=== PATIENT | female | born 1960 ===

== ENCOUNTER → 2017-07-15 | Outpatient (CLI) | payer OTHER ==
[~2017-07-15] MED LIST: ACET-1966 PO; ACET-2708 PO; CALC-854 PO; CHOL500050 PO; CLON-298 PO; CLON-389 PO; LETR2.5T4 PO; LOR1 PO; NAPR220C12 PO; VENL37.594 PO; VITA150T2 PO
--- NOTE | 2017-07-16 10:21 | RADIOLOGY IMAGING REPORT ---
FAC[place] [facility] [place]IENT NAME: HAY BRAGG : [id number] MR: [id number] V: [id number] EXAM DATE: [id number] ORDERING PHYSICIAN: GOVIND DORANTES TECHNOLOGIST: Ernestine Lmi PROCEDURE:BILATERAL DIAGNOSTIC DIGITAL MAMMOGRAM WITH CAD ASSISTED INTERPRETATION & 3D TOMOSYNTHESIS COMPARISON:Prior mammograms 07/14/16, 05/08/15, 11/16/14, 11/09/11 INDICATIONS:HX BREAST CA FINDINGS: Heterogeneous fibroglandular tissue is seen throughout the breasts. The area of postsurgical scaring and architectural distortion in the deep central Left breast with adjacent surgical clips appear similar to the prior study. Skin thickening over the Left breast is again seen consistent with the history of prior radiation therapy. There is no evidence of malignant appearing mass, malignant appearing calcifications or other secondary sign of malignancy in either breast. Today's Left breast Ultrasound demonstrated what appears to be scar tissue in the postoperative site. DIAGNOSTIC CATEGORY 3--PROBABLY BENIGN FINDING. RECOMMENDATIONS: SIX MONTH FOLLOW-UP ULTRASOUND: LEFT BREAST. IMPRESSION: BIRADS 3: Probably benign finding A 6 month follow-up Left breast Ultrasound is recommended as described in Today's Left breast Ultrasound report. Dictated by: Sherry Kaplan M.D. on 07/15/2017 at 16:19 Transcribed by: SAPNA on 07/16/2017 at 8:27 Approved by: Sherry Kaplan M.D. on 07/16/2017 at 10:20 [facility]
--- NOTE | 2017-07-16 10:22 | RADIOLOGY IMAGING REPORT ---
FACILITY: [facility] PATIENT NAME: HAY BRAGG : [id number] MR: [id number] V: [id number] EXAM DATE: [id number] ORDERING PHYSICIAN: GOVIND DORANTES TECHNOLOGIST: Faustina Kelly PROCEDURE:US LEFT BREAST COMPLETE COMPARISON:Prior Left breast Ultrasound 04/07/17, 07/14/16 INDICATIONS:HX BREAST CA FINDINGS: In the 10 o'clock position of the Left breast there is a 7 x 5 x 8mm ovoid well circumscribed hypoechoic region likely representing a focal island of fibroglandular tissue. In the 11-12 o'clock position of the Left breast again is demonstrated what appears to be a postsurgical scaring in the operative site tracking toward the skin. Skin thickening also noted consistent with the history of previous radiation therapy. The previously noted 4.7 x 4.3 x 5.3mm ovoid hypoechoic nodule in the 9 o'clock position Left breast 2cm from the nipple was not demonstrated on the current examination. DIAGNOSTIC CATEGORY 3--PROBABLY BENIGN FINDING. RECOMMENDATIONS: SIX MONTH FOLLOW-UP ULTRASOUND: LEFT BREAST. IMPRESSION: BIRADS 3: Probably benign finding There appears to be postoperative scaring in the 11-12 o'clock position of the Left breast. A 6 month follow-up Left mammogram is recommended to document stability unless clinical findings warrant more immediate attention. Dictated by: Sherry Kaplan M.D. on 07/15/2017 at 16:22 Transcribed by: SAPNA on 07/16/2017 at 8:38 Approved by: Sherry Kaplan M.D. on 07/16/2017 at 10:21 [facility]
== END ==
LOC: RAD 09:09
PROVIDERS: ATTEND Internal Medicine
DX: N63.22 Unspecified lump in the left breast, upper inner quadrant (principal)
CPT/HCPCS: 77062; 77066

== ENCOUNTER 2017-10-20 08:10 | Outpatient (RCR) | payer OTHER ==
[2017-10-13 13:45] VITALS: BP 115/59
[2017-10-13 14:16] LABS: PLATELET COUNT, AUTOMATED 366 K/uL (150-450)
[2017-10-20 08:33] VITALS: BP 120/78
--- NOTE | 2017-10-20 22:03 | ONCOLOGY FOLLOW UP NOTE ---
EVENT DATE: October 20, 2017 CHIEF COMPLAINT AND REASON FOR VISIT Ms. Doshi is a very pleasant, 57-year-old female with a history of two breast cancers, here for followup. HISTORY OF PRESENT ILLNESS AND INTERVAL HISTORY Pema returns. She has a [id number] survival from her second breast cancer with the first being back in 1991. Please see the full oncology history below. Her recent ultrasound of the breasts showed a left benign lesion on ultrasound that was new. The prior benign lesion had resolved. It is possible that this could be the same lesion, but does not appear to be close to the same location. It appears benign, and we will follow up again in six months. Discussed this in detail with her today. There were no microcalcifications of concern. She finished her hormonal therapy with letrozole in July 2016. She continues to have aches and pains, and we discussed this in detail today. She has left-sided back pain that often radiates down the leg that began after a fall on a hammock in a store about a year ago. She had some initial improvement , but it continues to be a problem, and it is starting to get worse again. I am concerned about benign causes to this back pain and would like to begin with physical therapy before imaging. Her levels of her labs are stable, and I do not believe we need to get imaging yet. ONCOLOGIC HISTORY The patient initially presented with abnormal mammogram in August of 2010. This lead to diagnosis of left breast cancer. 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 The patient underwent left breast partial mastectomy on October 13, 2010 and sentinel node invasive ductal carcinoma. There was contiguous focal invasion 1.19 cm and 1.7 cm with high-grade ductal carcinoma in situ (DCIS) components. Three sentinel lymph nodes were negative for metastasis. The patient had a margin resected again, since there was a positive margin on October 24, 2010. The patient received TCH times six cycles in April of 2011. Herceptin was continued times three weeks for the rest of the year, so she received adjuvant Herceptin for one year per protocol. The patient had radiation therapy on July 08, 2011, 3.67 cm node, negative left breast cancer. ER/NJ negative, HER2/anthony positive. The patient was started on letrozole in July of 2011. There was some question of recurrence, abnormal soft tissue and MRI of the bilateral breast on August 19, 2011. However, later CT scan reviewed it was scar tissue. Bone density on September 30, 2011 was unremarkable. The patient is due in August of 2013. The patient had a right upper extremity venous ultrasound which is negative for clot. The patient had a routine bilateral mammogram on November 09, 2011 and left mammogram done in May of 2012 in follow up. Bilateral mammogram in 2012. The patient is suppose to have left breast mammogram every six months and every 12 months bilateral. The patient is here for routine follow up. The patient had Infusaport removed in March of 2012. PAST MEDICAL HISTORY 1. Right breast cancer in 1991. 2. Left breast cancer in 2010. The patient is BRCA negative. PAST SURGICAL HISTORY Total hysterectomy on April 08, 2009. SOCIAL HISTORY The patient is . She presented with her . She does drink a few drinks of alcohol per week, nonsmoker. FAMILY HISTORY Her great-aunt had a form of cancer at an early age, otherwise unremarkable. MEDICATIONS 1. Lorazepam as needed. 2. Vitamin D supplement weekly. 3. Vitamin B complex. 4. Calcium. 5. Anti-inflammatories as needed. ALLERGIES CODEINE, LATEX and ADHESIVES. REVIEW OF SYSTEMS CONSTITUTIONAL: No fevers, chills, weight change. Positive fatigue, most likely related to work. HEENT: No headache, vision changes. CARDIOVASCULAR: No chest pain, dyspnea on exertion or edema. RESPIRATORY: No shortness of breath, wheeze, cough. GASTROINTESTINAL: No nausea, vomiting, diarrhea or constipation. GENITOURINARY: No dysuria or hematuria. MUSCULOSKELETAL: No weakness. Positive chronic arthralgias, unchanged. PSYCHIATRIC: No anxiety or depression. High stress. SKIN: No concerning rashes or bruising. LYMPHATIC: No concerning lumps or bumps. The remainder of the 14-point review of systems is otherwise negative. PHYSICAL EXAMINATION VITAL SIGNS: Blood pressure 120/78, pulse 63, respiratory rate 16, temperature 97.1 Fahrenheit, oxygen saturation 96% on room air. Weight 66.6 kg. Pain 6/ 10. Fatigue 6/10 due to work and stress. GENERAL: Stable condition, resting comfortably in a chair. HEENT: Normocephalic, atraumatic. CARDIOVASCULAR: Regular rate and rhythm. LUNGS: Clear to auscultation bilaterally. No dullness at the bases. ABDOMEN: Soft, nontender. No organomegaly or masses. EXTREMITIES: No clubbing, cyanosis, or edema of significance. She does have trace edema in the feet. Remainder of physical exam otherwise unremarkable. IMPRESSION AND PLAN Mrs. Doshi is a very pleasant 57-year-old female with the followin. Right-sided breast cancer, ER and NJ positive, HER2/anthony normal, treated with radiation therapy and surgery in 1991. 2. Left-sided breast cancer, ER and NJ positive, HER2/anthony overexpressed. She received chemotherapy for this in 2010 and finished letrozole in 2017. She is doing quite well with improvement of the arthralgias related to the letrozole. She does still have chronic issues and back pain. 3. Fatigue related to stress. 4. Back pain, chronic, likely related to a fall over a year ago. She did not seek medical attention for this, but it continues to be a problem. After discussion, would like to start with physical therapy, and I have ordered this. If this is not successful, then I would like to get an MRI. 5. Edema, trace. She has had echocardiograms which have been unremarkable. Will refer her back to her primary care provider, Ms. Quinones, to consider a repeat cardiac workup and management of this. I do not yet feel she needs Lasix , but may in the future. I answered all her questions. See us back in six months with repeat imaging. BILLING Visit level 4. Total time 30 minutes, counseling time 20. MTDD
== END 2017-10-21 10:45 | disposition home or self-care (01) ==
LOC: ONC 08:10
PROVIDERS: ATTEND Internal Medicine
DX: Z85.3 Personal history of malignant neoplasm of breast (principal); Z92.3 Personal history of irradiation; Z92.21 Personal history of antineoplastic chemotherapy; R53.83 Other fatigue; M54.9 Dorsalgia, unspecified
CPT/HCPCS: 36415; 82040; 82247; 82310; 82374; 82435; 82565; 82947; 84075; 84132; 84155; 84295; 84450; 84460; 84520; 85025; 86300; 99212

== ENCOUNTER 2017-12-22 16:00 | Outpatient (RCR) | payer OTHER ==
--- NOTE | 2017-10-21 19:55 | PT INITIAL EVALUATION ---
MEDICAL DIAGNOSIS: low back pain TREATMENT DIAGNOSIS: same and cervical neck pain DATE OF ONSET: 10/21/16 SUBJECTIVE: Pema Doshi presents to physical therapy with complaints of low back pain that started approximately one year ago following a incident with a hammock in which she hit her back against the concrete ground. She states that the pain has gotten worse over the last 6 months. She reports that she has an essential tremor that forces her neck and the muscles surrounding her neck to be sore and painful. She reports that she has had breast cancer two different times approximately 25 years apart. She reports that she has been in remission since 2010 and has finished taking her anti-cancer medication approximately one year ago. She reports that she has lymphedema in her R UE and B LE's and has compression sleeve for her R UE. She reports that she has pain with lifting 30# or more, bending, sitting, standing, walking, and lying. She denies any pain with coughing, sneezing, or straining. She reports normal bladder control since the back pain started. She denies any imaging or recent surgery. She reports that she has night pain but denies any unexplained weight loss. Pain location is L posterior hip radiating down to posterior L thigh, C0- T8 spinous, BUT and described as achy, sharp. Pain scale is 7 on a ten point pain scale. 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 ROM: Trunk AROM: flexion: Nil with tightness end feel. extension: moderate restriction with painful end feel. side gliding R: minimal restriction with painful end feel. side gliding L: moderate restriction with painful end feel. Palpation: TTP: C0-T78 spinous process and facet joints, B UT, and L posterior hip (PSIS) radiating down to posterior L thigh Sensation: Intact: L2-S1 Special Tests: Repeated extension: pain during the test and worse following the test (potentially centralized) but she had decreased trunk AROM following and it was more painful as well (worse). Repeated flexion: stretch during the test and better following the test with improvements in trunk AROM in all directions. Will test cervical in a future visit. Mobility: Independent Gait: She demonstrated normal gait mechanics ASSESSMENT: Pema will benefit from skilled physical therapy to address the listed impairments to improve function and return to prior level of function. Short Term Goals 3 weeks: Pt will demonstrate centralized low back pain to improve function and QOL. 6 weeks: Pt will demonstrate abolished low back pain to improve function and QOL. 8 weeks: Pt will demonstrate return to prior level of function and abolished low back pain to improve function and QOL. Patient's Goals get rid of low back pain and neck pain PLAN: Patient to be seen for Manual Therapy/STM/MET Strengthening/condition Range of Motion Spinal Stabilization Work Hardening/Cond Stretching Neuromuscular Re-ed Closed Chain Program Posture/Body mechanics Home Exercise Program Therapeutic Activities 2x/Week for 2 Months If you have any questions, comments, or concerns about this report or plan, please contact me at . Thank you, Roberto Garrison, PT, DPT MTDD
[~2017-12-22 16:00] MED LIST changes: -CLON-298 PO; +CLON-331 PO
== END 2018-01-19 ==
LOC: PT 16:00
PROVIDERS: ATTEND Internal Medicine
DX: M54.5 Low back pain (principal); M54.2 Cervicalgia; G25.0 Essential tremor; M25.552 Pain in left hip
CPT/HCPCS: 97162

== ENCOUNTER → 2018-01-24 | Outpatient (CLI) | payer OTHER ==
--- NOTE | 2018-01-25 09:04 | RADIOLOGY IMAGING REPORT ---
FACILITY: [facility] - [place] PATIENT NAME: HAY BRAGG : [id number] MR: [id number] V: [id number] EXAM DATE: [id number] ORDERING PHYSICIAN: GOVIND DORANTES TECHNOLOGIST: Vaishnavi Hua RT(R)(CT) PROCEDURE:US LEFT BREAST COMPARISON:Prior mammogram 07/15/17 Prior Left breast Ultrasound 07/15/17, 04/07/17, 07/14/16, 05/08/15. INDICATIONS:6 MO F/U FINDINGS: From the 9-12 o'clock position of the Left breast again noted is an area of scar tissue with acoustic shadowing that appears similar to the prior Ultrasounds. DIAGNOSTIC CATEGORY 3--PROBABLY BENIGN FINDING. RECOMMENDATIONS: SIX MONTH FOLLOW-UP DIAGNOSTIC MAMMOGRAM: BILATERAL BREASTS. IMPRESSION: BIRADS 3: Probably benign finding. Scar tissue in the 9-12 o'clock position of the Left breast is again seen. A 6 month follow-up bilateral mammogram is recommended at which time the patient will be due for her annual mammogram. Dictated by: Sherry Kaplan M.D. on 01/24/2018 at 16:46 Transcribed by: SAPNA on 01/25/2018 at 8:41 Approved by: Sherry Kaplan M.D. on 01/25/2018 at 9:03 [facility]
== END ==
LOC: MAMO 13:41
PROVIDERS: ATTEND Internal Medicine
DX: C50.912 Malignant neoplasm of unspecified site of left female breast (principal); Z17.0 Estrogen receptor positive status [ER+]

== ENCOUNTER → 2018-06-13 | Outpatient (CLI) | payer OTHER ==
[~2018-06-13] MED LIST changes: +GADOBENATE 529MG/1ML 15ML VIAL IVP ONE; +PROP60TA15 PO
[2018-06-13 13:17] LABS: PLATELET COUNT, AUTOMATED 419 K/uL (150-450)
--- NOTE | 2018-06-13 15:23 | RADIOLOGY IMAGING REPORT ---
FACILITY: [facility] - [place] PATIENT NAME: Pema Doshi : 1960 MR: [id number] V: [id number] EXAM DATE: ORDERING PHYSICIAN: REJI GILLIS TECHNOLOGIST: Location: [facility] - [place] Patient: Pema Doshi : 1960 Visit/Account:[id number] Date of Sevice: 06/13/2018 EXAMINATION: MRI Brain without intravenous contrast MRI Brain with intravenous contrast HISTORY: Tremor. Breast cancer. COMPARISON: None available. TECHNIQUE: Multi-planar, multi-sequence brain MRI was performed before and after IV gadolinium. CONTRAST: 14 mL of IV MultiHance FINDINGS: Brain volume: Normal. Sagittal midline structures: Negative. Ventricles: Negative. Acute ischemic changes: None. Hemorrhage: None. Masses / edema: None. Enhancement: Negative. Paz-white: Negative. White matter: A few T2/FLAIR hyperintensities in the deep white matter bilaterally. Vessels: Negative. Extra-axial: Negative. Calvarium / scalp: Negative. Skull base: Negative. Visualized sinuses / orbits: Negative. Visualized upper neck: Negative. IMPRESSION: 1. No acute intracranial abnormality or mass. 2. Mild chronic white matter disease, nonspecific but most likely representing chronic microvascular ischemia. Report Dictated By: Ghanshyam Jean MD at 06/13/2018 3:13 PM Report E-Signed By: Ghanshyam Jean MD at 06/13/2018 3:18 PM WSN:[id number]
== END ==
LOC: MRI 02:16
PROVIDERS: ATTEND Psychiatry & Neurology Neurology
DX: R25.1 Tremor, unspecified (principal); G25.0 Essential tremor; F33.41 Major depressive disorder, recurrent, in partial remission; M54.2 Cervicalgia; M62.838 Other muscle spasm
CPT/HCPCS: 36415; 70553; 82164; 82306; 82607; 82746; 84439; 84443; 85025; 86038; A9577; 82040; 82247; 82310; 82374; 82435; 82565; 82947; 84075; 84132; 84155; 84295; 84450; 84460; 84520

== ENCOUNTER 2018-10-10 12:47 | Outpatient (RCR) | payer OTHER ==
[2018-10-03 12:58] VITALS: BP 111/85
[2018-10-03 13:04] LABS: PLATELET COUNT, AUTOMATED 389 K/uL (150-450)
[~2018-10-10 12:47] MED LIST changes: -GADOBENATE 529MG/1ML 15ML VIAL IVP ONE
[2018-10-10 13:05] VITALS: BP 106/74
[2018-10-10] MEDS ORDERED: SERT-184 PO (13:07)
--- NOTE | 2018-10-14 02:55 | ONCOLOGY FOLLOW UP NOTE ---
EVENT DATE: October 10, 2018 CHIEF COMPLAINT Followup for breast cancer. HISTORY OF PRESENT ILLNESS Patient is a 58-year-old female who is seen today in six-month followup. Overall, from a breast cancer point of view, she feels she is doing fairly well. However, she has fairly significant essential tremor. She is looking into deep brain stimulation. Her other issue is that of ongoing neck and right shoulder pain due to cervical dystonia. She is working with a neurologist in [place] and will be scheduled for Botox injections in the near future. Both of these issues have been fairly overwhelming, and she is hopeful for some improvement. She does have some ongoing arthralgias, but feels much of this is related to her cervical dystonia. ONCOLOGY HISTORY Diagnosed with a right breast cancer in 1991, status post lumpectomy. She then presented with an abnormal mammogram in August 2010, and was diagnosed with a left breast cancer. She underwent stereotactic core biopsy in August 2012, which showed high-grade invasive ductal carcinoma, ER weakly positive, [place] positive, HER2/anthony positive. Underwent left lumpectomy on 10/13/10 with sentinel lymph node positive for the invasive ductal carcinoma. Completed six cycles of TCH in April 2011, followed by Herceptin every three weeks for the remainder of the year. Completed radiation therapy in July 2011. Began letrozole in July 2011 and completed a five-year course in July 2016. MEDICAL HISTORY 1. Right breast cancer, 1991. 2. Left breast cancer, 2010. 3. Cervical dystonia. 4. Essential tremor. SURGICAL HISTORY 1. Total hysterectomy, April 2009. 2. Right lumpectomy, 1991. 3. Left lumpectomy, 2010. FAMILY HISTORY Great aunt had a form of cancer at an early age, but otherwise negative. SOCIAL HISTORY Patient is . She is not working. She is a nonsmoker. She drinks alcohol several times a week. MEDICATIONS 1. Lorazepam p.r.n. 2. Sertraline. 3. Vitamin D. 4. Vitamin B. 5. Calcium. 6. Anti-inflammatories p.r.n. ALLERGIES 1. CODEINE. 2. LATEX. 3. ADHESIVES. REVIEW OF SYSTEMS A 12-point review of systems is performed and is negative except as stated above. PHYSICAL EXAMINATION VITAL SIGNS: Weight 140 pounds, BP 106/74, P 63, R 16, temp 97.3, O2 sat 96%. GENERAL: Patient is a well-developed, well-nourished female in no acute distress. HEAD: Normocephalic, atraumatic. EYES: Sclerae anicteric. MOUTH: Moist mucous membranes. NECK: Neck is very stiff due to cervical dystonia. No palpable adenopathy. BREASTS: Status post right lumpectomy with well-healed incision. Left breast has a well-healed incision with mild thickened areas. LUNGS: Clear bilaterally. CARDIOVASCULAR: Heart rate regular at 63 per minute. ABDOMEN: Soft, nontender, with active bowel sounds. No organomegaly. EXTREMITIES: No edema. NEURO: Essential tremor, but otherwise negative. LABORATORY CBC on 10/03/18 showed a WBC of 6.9, hemoglobin 13.2, hematocrit 39.1, platelets 389,000. CMP was within normal limits. CA15-3 is 37 (decreased from 43). IMPRESSION The patient is a 58-year-old female with a history of right breast cancer, ER/TX positive, HER2/anthony negative, status post surgery and radiation in 1991. She developed a left breast cancer, ER/TX positive and HER2/anthony overexpressed. Underwent left lumpectomy. Completed chemotherapy with TCH in 2010 as well as Herceptin for a total of one year. Completed a five-year course of letrozole in 2017. PLAN 1. Breast cancer. No signs or symptoms of disease recurrence. She does have some mild arthralgias remaining, which she attributes to both the previous aromatase inhibitor as well as her cervical dystonia. 2. Breast surveillance. Underwent bilateral mammogram on 07/15/17, which was BIRADS category 3. Left breast ultrasound on 01/24/18, also BIRADS category 3. Recommendation is to repeat both bilateral diagnostic mammogram as well as left breast ultrasound in six months, due now. These are ordered today. 3. Essential tremor. Patient has met with a neurologist and is discussing deep brain stimulation. 4. Cervical dystonia. This has caused her much discomfort in her neck and shoulder. She has met with a neurologist, who is planning Botox treatments. 5. Followup in six months for continued care, earlier if there is a problem. MTDD
== END 2018-10-31 14:50 | disposition home or self-care (01) ==
LOC: ONC 12:47
PROVIDERS: ATTEND Internal Medicine
DX: Z85.3 Personal history of malignant neoplasm of breast (principal); Z92.21 Personal history of antineoplastic chemotherapy; G24.3 Spasmodic torticollis
CPT/HCPCS: 36415; 82040; 82247; 82310; 82374; 82435; 82565; 82947; 84075; 84132; 84155; 84295; 84450; 84460; 84520; 85025; 86300; 99212

== ENCOUNTER → 2018-11-02 | Outpatient (CLI) | payer OTHER ==
[~2018-11-02] MED LIST changes: +SERT-184 PO
--- NOTE | 2018-11-04 15:44 | RADIOLOGY IMAGING REPORT ---
FACILITY: [facility] PATIENT NAME: HAY BRAGG : [id number] MR: [id number] V: [id number] EXAM DATE: ORDERING PHYSICIAN: DC ARREAGA TECHNOLOGIST: Heidi Leo PROCEDURE:BILATERAL DIAGNOSTIC DIGITAL MAMMOGRAM WITH CAD ASSISTED INTERPRETATION & 3D TOMOSYNTHESIS REASON FOR STUDY: History of Left breast ca FAMILY HISTORY OF BREAST CANCER: Self BREAST PROCEDURES/TREATMENTS: Malignant lumpectomy of the Right breast 1991 followed by radiation therapy & a malignant lumpectomy of the Left breast followed by radiation therapy & chemotherapy. COMPARISON STUDIES: 07/15/17, 07/14/16, 05/08/15, 11/09/11 MAMMOGRAM VIEWS OBTAINED: Bilateral 2D & 3D full field CC & MLO projections BREAST DENSITY: The breasts are heterogeneously dense which can obscure small masses. MAMMOGRAM FINDINGS: Again noted is an area of architectural distortion in the approximate 12 o'clock position of the Left breast from previous lumpectomy with adjacent surgical clips. Skin thickening also noted in the Left breast consistent with prior radiation therapy. The parenchymal pattern has remained stable allowing for difference in mammographic technique & patient positioning. ULTRASOUND LEFT BREAST LIMITED AREA SCANNED: The 9-12 o'clock position of the Left breast in the location of patient's scar. COMPARISON: Left breast Ultrasound of 01/24/18, 07/15/17, 04/07/17, 05/08/15 ULTRASOUND FINDINGS: When compared to the Left breast Ultrasound of 05/08/15 again noted is the area of scar tissue with acoustic shadowing that actually appears slightly less prominent when compared to the old Ultrasound. DIAGNOSTIC CATEGORY 2--BENIGN FINDING. RECOMMENDATIONS: ROUTINE MAMMOGRAM AND CLINICAL EVALUATION. IMPRESSION: BIRADS 2: Benign finding. There is an area of post surgical scaring in the approximate 12 o'clock position Left breast that actually appears slightly less prominent by serial Ultrasounds. Dictated by: Sherry Kaplan M.D. on 11/02/2018 at 16:11 Transcribed by: ARNEL on 11/04/2018 at 12:20 Approved by: Sherry Kaplan M.D. on 11/04/2018 at 15:40 [facility]
--- NOTE | 2018-11-04 15:44 | RADIOLOGY IMAGING REPORT ---
FACILITY: [facility] PATIENT NAME: HAY BRAGG : [id number] MR: [id number] V: [id number] EXAM DATE: [id number] ORDERING PHYSICIAN: DC ARREAGA TECHNOLOGIST: Feliciano Storey RDMS, RD PROCEDURE:BILATERAL DIAGNOSTIC DIGITAL MAMMOGRAM WITH CAD ASSISTED INTERPRETATION & 3D TOMOSYNTHESIS REASON FOR STUDY: History of Left breast ca FAMILY HISTORY OF BREAST CANCER: Self BREAST PROCEDURES/TREATMENTS: Malignant lumpectomy of the Right breast 1991 followed by radiation therapy & a malignant lumpectomy of the Left breast followed by radiation therapy & chemotherapy. COMPARISON STUDIES: 07/15/17, 07/14/16, 05/08/15, 11/09/11 MAMMOGRAM VIEWS OBTAINED: Bilateral 2D & 3D full field CC & MLO projections BREAST DENSITY: The breasts are heterogeneously dense which can obscure small masses. MAMMOGRAM FINDINGS: Again noted is an area of architectural distortion in the approximate 12 o'clock position of the Left breast from previous lumpectomy with adjacent surgical clips. Skin thickening also noted in the Left breast consistent with prior radiation therapy. The parenchymal pattern has remained stable allowing for difference in mammographic technique & patient positioning. ULTRASOUND LEFT BREAST LIMITED AREA SCANNED: The 9-12 o'clock position of the Left breast in the location of patient's scar. COMPARISON: Left breast Ultrasound of 01/24/18, 07/15/17, 04/07/17, 05/08/15 ULTRASOUND FINDINGS: When compared to the Left breast Ultrasound of 05/08/15 again noted is the area of scar tissue with acoustic shadowing that actually appears slightly less prominent when compared to the old Ultrasound. DIAGNOSTIC CATEGORY 2--BENIGN FINDING. RECOMMENDATIONS: ROUTINE MAMMOGRAM AND CLINICAL EVALUATION. IMPRESSION: BIRADS 2: Benign finding. There is an area of post surgical scaring in the approximate 12 o'clock position Left breast that actually appears slightly less prominent by serial Ultrasounds. Dictated by: Sherry Kaplan M.D. on 11/02/2018 at 16:11 Approved by: Sherry Kaplan M.D. on 11/04/2018 at 15:41 [facility]
== END ==
LOC: MAMO 00:06
PROVIDERS: ATTEND Nurse Practitioner
DX: Z85.3 Personal history of malignant neoplasm of breast (principal)
CPT/HCPCS: 77062; 77066